=== PATIENT | female | born 1960 ===

== ENCOUNTER 2016-09-25 06:17 | Emergency (ER) | payer OTHER ==
[2016-09-25 06:33] VITALS: O2SAT 99
[2016-09-25] MEDS ORDERED: Sodium Chloride 0.9% 500 ML IV ONE (07:22)
--- NOTE | 2016-09-25 07:24 | C.PDOC ---
History Of Present Illness 56 yr old female presents to the ER for evaluation of intermittent nausea and chest pain. Patient denies fever, vomiting, abdominal pain, diarrhea or cough. Patient has history of alcohol abuse Time Seen by Provider: 09/25/16 07:13 Chief Complaint (Nursing): Chest Pain History Per: Patient History/Exam Limitations: no limitations, language barrier (Mosotho ) Onset/Duration Of Symptoms: Days Current Symptoms Are (Timing): Still Present Quality: Dull, Burning Exacerbating Factors: Movement Alleviating Factors: Rest Past Medical History Reviewed: Historical Data, Nursing Documentation, Vital Signs Vital Signs: Last Vital Signs Temp 98.3 F 09/25/16 11:01 Pulse 95 H 09/25/16 11:01 Resp 15 09/25/16 11:01 BP 103/68 09/25/16 11:01 Pulse Ox 99 09/25/16 11:14 - Medical History PMH: Gall Bladder Disease (cholecystectomy), HTN, Hypercholesterolemia Surgical History: CABG, Cholecystectomy, Coronary Stent, Pacemaker Family History: States: Hypertension - Social History Hx Tobacco Use: No Hx Alcohol Use: Yes Hx Substance Use: No - Immunization History Hx Tetanus Toxoid Vaccination: No Hx Influenza Vaccination: No Hx Pneumococcal Vaccination: No Review Of Systems Except As Marked, All Systems Reviewed And Found Negative. Constitutional: Negative for: Fever Cardiovascular: Positive for: Chest Pain Respiratory: Negative for: Cough Gastrointestinal: Positive for: Nausea. Negative for: Vomiting, Abdominal Pain , Diarrhea Physical Exam - Physical Exam Appears: Well, Non-toxic, No Acute Distress Skin: Normal Color, Warm, Dry Head: Atraumatic, Normacephalic Eye(s): bilateral: Normal Inspection, PERRL, EOMI Oral Mucosa: Moist Throat: Normal, No Erythema, No Exudate Neck: Normal Chest: Symmetrical, Tenderness (Reproducible left side chest pain. ), Other ((+ ) Scar noted on the left side of chest) Cardiovascular: Rhythm Regular, No Murmur Respiratory: Normal Breath Sounds, No Rales, No Rhonchi, No Wheezing Gastrointestinal/Abdominal: Normal Exam, Soft, No Tenderness, No Guarding, No Rebound Extremity: Normal ROM, No Swelling Neurological/Psych: Oriented x3, Normal Speech, Normal Motor Gait: Steady ED Course And Treatment - Laboratory Results Result Diagrams: 09/25/16 07:35 09/25/16 07:35 Lab Interpretation: Normal ECG: Interpreted By Me ECG Rhythm: Sinus Rhythm ECG Interpretation: No Acute Changes O2 Sat by Pulse Oximetry: 99 Pulse Ox Interpretation: Normal - Radiology CXR: Interpreted by Me CXR Interpretation: Yes: No Acute Disease - Other Rad CXR X-Ray: Viewed By Me, Read By Radiologist Interpretation: HISTORY: SOB. COMPARISON: Comparison is made to the previous study dated 08/01/2016. TECHNIQUE: Chest PA and lateral. FINDINGS: LUNGS: Interval appearance of mild pulmonary vascular congestion since the previous exam. PLEURA: No significant pleural effusion identified. No pneumothorax apparent. CARDIOVASCULAR: Mild cardiomegaly and post cardiac surgery changes are again seen. OSSEOUS STRUCTURES: No significant abnormalities. VISUALIZED UPPER ABDOMEN: Normal. OTHER FINDINGS: None. IMPRESSION: Mild pulmonary vascular congestion. Otherwise no interval change. Progress Note: Prior records were reviewed which shows patient has a history of alcohol abuse and is frequently seen for similar symptoms. On re-evaluation lungs clear, ambulating with steady gait. Requesting discharge Reassessment Condition: Improved Medical Decision Making Medical Decision Making: PLAN: * CXR * EKG * Troponin * CBC * Urinalysis * Zofran IVP * Sodium Chloride IV Disposition Counseled Patient/Family Regarding: Studies Performed, Diagnosis, Need For Followup, Rx Given - Disposition Referrals: [facility] [email or web address] [Outside] [facility] [Outside] Disposition: HOME/ ROUTINE Disposition Time: 11:30 Condition: IMPROVED Prescriptions: Ondansetron ODT [Zofran ODT] 1 odt PO BID PRN #6 odt PRN Reason: Nausea/Vomiting Instructions: Gastritis (ED) Print Language: GREENLANDIC - POA Present On Arrival: None - Clinical Impression Clinical Impression: Nausea, Chest wall pain - PA / PRECISION DEVICES INSPECTOR/TESTER / Resident Statement MD/DO has reviewed & agrees with the documentation as recorded. - Scribe Statement The provider has reviewed the documentation as recorded by the Scribe Shiloh Garza All medical record entries made by the Jianibe were at my direction and personally dictated by me. I have reviewed the chart and agree that the record accurately reflects my personal performance of the history, physical exam, medical decision making, and the department course for this patient. I have also personally directed, reviewed, and agree with the discharge instructions and disposition.
[2016-09-25 07:38] LABS: BASO % 0.2 % (0.0-2.0); EOS % 0.4 % (0.0-4.0); HEMATOCRIT 37.1 % (34.0-47.0); LYMPH # 1.9 K/uL (1.0-4.3); LYMPH % 45.7 % (20.0-40.0); MEAN CELL VOLUME 87.5 fL (81.0-99.0); MEAN CORPUSCULAR HEMOGLOBIN 28.8 pg (27.0-31.0); MEAN CORPUSCULAR HGB CONC 32.9 g/dL (33.0-37.0); MEAN PLATELET VOLUME 8.6 fL (7.2-11.7); MONO # 0.6 K/uL (0.0-0.8); MONO % 13.1 % (0.0-10.0); NRBC % 0.1 % (0.0-2.0); WHITE BLOOD COUNT 4.2 K/uL (4.8-10.8)
[2016-09-25 07:46] LABS: CHLORIDE 105 mmol/L (98-107)
[2016-09-25 07:47] LABS: POTASSIUM 4.5 mmol/L (3.6-5.2); SODIUM 141 mmol/L (132-148)
[2016-09-25 07:49] LABS: ALB/GLOB RATIO 1.1 (1.0-2.1); ALKALINE PHOSPHATASE 87 U/L (38-126); AST/SGOT 39 U/L (14-36); BILIRUBIN,TOTAL 0.7 mg/dL (0.2-1.3); BLOOD UREA NITROGEN 13 mg/dL (7-17); CARBON DIOXIDE 21 mmol/L (22-30); GFR AFRICAN-AMERICAN > 60; TOTAL PROTEIN 7.1 g/dL (6.3-8.3)
[2016-09-25 07:50] LABS: ALT/SGPT 9 U/L (9-52); GLUCOSE,RANDOM 89 mg/dL (65-105)
--- NOTE | 2016-09-25 07:53 | RAD ---
HISTORY: SOB COMPARISON: Comparison is made to the previous study dated 08/01/2016 TECHNIQUE: Chest PA and lateral FINDINGS: LUNGS: Interval appearance of mild pulmonary vascular congestion since the previous exam. PLEURA: No significant pleural effusion identified. No pneumothorax apparent. CARDIOVASCULAR: Mild cardiomegaly and post cardiac surgery changes are again seen. OSSEOUS STRUCTURES: No significant abnormalities. VISUALIZED UPPER ABDOMEN: Normal. OTHER FINDINGS: None. IMPRESSION: Mild pulmonary vascular congestion. Otherwise no interval change.
[2016-09-25] MEDS ORDERED: Sodium Chloride 0.9% 1,000 ML ONE (07:58)
[2016-09-25 08:13] LABS: RBC URINE 2 /hpf (0-3); TRANSITIONAL EPITHIAL < 1 /hpf (0-3); URINE BACTERIA RARE (<OCC); URINE BILIRUBIN NEGATIVE (NEGATIVE); URINE BLOOD NEGATIVE (NEGATIVE); URINE COLOR Yellow (YELLOW); URINE GLUCOSE (UA) NORMAL (Normal); URINE KETONE NEGATIVE (NEGATIVE); URINE PROTEIN NEGATIVE (NEGATIVE); URINE UROBILINOGEN NORMAL mg/dL (0.2-1.0); WBC URINE 7 /hpf (0-5)
[2016-09-25 08:15] LABS: URINE LEUKOCYTE ESTERASE 1+ Leu/uL (Negative)
[2016-09-25] MEDS ORDERED: Alum-Mag Hydrox-Simethicone Susp (30 mL) PO STA (09:32)
[2016-09-25] MEDS ORDERED: Aluminum Hydroxide/Magnesium Hydroxide Susp (30 mL) ONE (09:38)
[2016-09-25 11:01] VITALS: BP 103/68; PULSE 95; RESP 15; TEMP 98.3
--- NOTE | 2016-09-30 13:25 | CARD ---
APPROVED REPORT EKG Measurement Heart [id number] <Conclusion> Normal sinus rhythm Normal ECG
== END 2016-09-25 11:24 | disposition home or self-care (01) ==
LOC: C.ER 06:17
DX: R11.0 Nausea (principal); R07.89 Other chest pain
CPT/HCPCS: 71020; 80053; 81001; 82553; 83690; 84484; 85025; 96361; 96374; 96375; 99284; J2405; J7040

== ENCOUNTER 2016-10-16 20:29 | Emergency (ER) | payer SELFPAY ==
--- NOTE | 2016-10-16 21:05 | C.PDOC ---
History Of Present Illness Patient is a 56 year old female who presents to the ER with a complaint of chest pain and vomiting for the past 3 days. Patient admits to ETOH use today and presents intoxicated. Denies abdominal pain or diarrhea. Time Seen by Provider: 10/16/16 20:53 Chief Complaint (Nursing): Chest Pain History Per: Patient History/Exam Limitations: intoxication, language barrier Onset/Duration Of Symptoms: Days (3) Current Symptoms Are (Timing): Still Present Quality: Sharp Past Medical History Reviewed: Historical Data, Nursing Documentation, Vital Signs Vital Signs: Last Vital Signs Temp 97.6 F 10/16/16 22:32 Pulse 96 H 10/16/16 22:32 Resp 18 10/16/16 22:32 BP 122/86 10/16/16 22:32 Pulse Ox 95 10/16/16 22:32 - Medical History PMH: Gall Bladder Disease (cholecystectomy), HTN, Hypercholesterolemia Surgical History: CABG (5 years ago), Cholecystectomy, Coronary Stent, Pacemaker Family History: States: Unknown Family Hx, Hypertension - Social History Hx Tobacco Use: No Hx Alcohol Use: Yes Hx Substance Use: No - Immunization History Hx Tetanus Toxoid Vaccination: No Hx Influenza Vaccination: No Hx Pneumococcal Vaccination: No Review Of Systems Cardiovascular: Positive for: Chest Pain Gastrointestinal: Positive for: Vomiting. Negative for: Abdominal Pain, Diarrhea Physical Exam - Physical Exam Additional Physical Exam Comments: Constitutional: No acute distress. ETOH on breath. Head: Normocephalic. Atraumatic. Eyes: PERRL. ENT: Moist mucous membranes. Neck: Supple. Cardiovascular: Regular rate. Radial pulse 2+ bilaterally. Chest: Focal tenderness. Reproducible pain with palpation. Respiratory: Clear to auscultation bilaterally. GI: Soft. Nontender. Nondistended. Back: No CVA tenderness. Musculoskeletal: No tenderness or swelling of extremities. Skin: No rash. Neurologic: Alert, no focal deficit. ED Course And Treatment - Laboratory Results Result Diagrams: 10/16/16 21:16 10/16/16 21:16 O2 Sat by Pulse Oximetry: 98 (Room air) Pulse Ox Interpretation: Normal Medical Decision Making Medical Decision Making: Blood work, EKG, and CXR ordered. Aspirin administered. EKG results: 95 bpm, no ST/T changes. Patient states she feels better and wishes to go home. Enzymes negative in this patient with reproducible chest pain for the last 3 days. Disposition - Disposition Referrals: Kevin Kern MD [Staff Provider] - Disposition: HOME/ ROUTINE Disposition Time: 21:57 Condition: STABLE Prescriptions: Famotidine [Pepcid] 1 tab PO BID #28 tab Instructions: Chest Pain (ED) Print Language: MOSOTHO - POA Core Measure Indicators: Chest Pain - Clinical Impression Clinical Impression: Chest pain - Scribe Statement The provider has reviewed the documentation as recorded by the Scribnicolas Ring All medical record entries made by the Jianibnicolas were at my direction and personally dictated by me. I have reviewed the chart and agree that the record accurately reflects my personal performance of the history, physical exam, medical decision making, and the department course for this patient. I have also personally directed, reviewed, and agree with the discharge instructions and disposition.
[2016-10-16 21:19] LABS: BASO % 0.2 % (0.0-2.0); EOS % 0.4 % (0.0-4.0); HEMATOCRIT 38.5 % (34.0-47.0); LYMPH # 2.2 K/uL (1.0-4.3); LYMPH % 38.9 % (20.0-40.0); MEAN CELL VOLUME 88.2 fL (81.0-99.0); MEAN CORPUSCULAR HEMOGLOBIN 28.8 pg (27.0-31.0); MEAN CORPUSCULAR HGB CONC 32.7 g/dL (33.0-37.0); MEAN PLATELET VOLUME 8.4 fL (7.2-11.7); MONO # 0.6 K/uL (0.0-0.8); MONO % 10.1 % (0.0-10.0); NRBC % 0.1 % (0.0-2.0); RED CELL DISTRIBUTION WIDTH 14.4 % (11.5-14.5); WHITE BLOOD COUNT 5.6 K/uL (4.8-10.8)
[2016-10-16 21:41] LABS: CHLORIDE 105 mmol/L (98-107); POTASSIUM 4.3 mmol/L (3.6-5.2); SODIUM 144 mmol/L (132-148)
[2016-10-16 21:43] LABS: ALB/GLOB RATIO 1.3 (1.0-2.1); ALKALINE PHOSPHATASE 87 U/L (38-126); AST/SGOT 34 U/L (14-36); BILIRUBIN,TOTAL 0.3 mg/dL (0.2-1.3); BLOOD UREA NITROGEN 12 mg/dL (7-17); CARBON DIOXIDE 24 mmol/L (22-30); GFR AFRICAN-AMERICAN > 60; TOTAL PROTEIN 7.7 g/dL (6.3-8.3)
[2016-10-16 21:44] LABS: ALT/SGPT 17 U/L (9-52); CALCIUM 8.6 mg/dl (8.6-10.4); GLUCOSE,RANDOM 117 mg/dL (65-105)
[2016-10-16 21:45] LABS: ALCOHOL SERUM 175 mg/dl (0-10)
[2016-10-16] MEDS ORDERED: Aluminum Hydroxide/Magnesium Hydroxide Susp (30 mL) ONE (21:55)
[2016-10-16] MEDS ORDERED: Aluminum Hydroxide/Magnesium Hydroxide Susp (30 mL) PO ONE (21:57)
[2016-10-16 22:32] VITALS: BP 122/86; PULSE 96; RESP 18; TEMP 97.6
[2016-10-16 23:37] VITALS: O2SAT 98
--- NOTE | 2016-10-17 09:58 | RAD ---
HISTORY: cp COMPARISON: 09/25/2016 FINDINGS: LUNGS: Poor inspiration with low lung volumes, crowded bronchovascular markings and mild bibasilar atelectasis. The central pulmonary vasculature also slightly congested in appearance possibly due to same however underlying mild chronic compensated pulmonary edema/CHF not excluded PLEURA: No significant pleural effusion identified, no pneumothorax apparent. CARDIOVASCULAR: Cardiomegaly and valve replacement. OSSEOUS STRUCTURES: No significant abnormalities. VISUALIZED UPPER ABDOMEN: Normal. OTHER FINDINGS: None. IMPRESSION: Poor inspiration with low lung volumes, crowded bronchovascular markings and mild bibasilar atelectasis. The central pulmonary vasculature also slightly congested in appearance possibly due to same however underlying mild chronic compensated pulmonary edema/CHF not excluded
== END 2016-10-16 22:31 | disposition home or self-care (01) ==
LOC: C.ER 20:29
DX: R07.89 Other chest pain (principal)
CPT/HCPCS: 71010; 80053; 82550; 82553; 84484; 85025; 99285; G0480

== ENCOUNTER 2016-11-30 05:51 | Emergency (ER) | payer SELFPAY ==
[2016-11-30 06:04] VITALS: BP 144/89; PULSE 74; RESP 20; TEMP 97.4; O2SAT 100
[2016-11-30] MEDS ORDERED: Promethazine/Cod 6.25mg-10mg/5ml Syr UD PO STA (06:07)
--- NOTE | 2016-11-30 06:12 | C.PDOC ---
History Of Present Illness 56 year old female who presents to the ER with a complaint of persistent cough since last night, associated with a sore throat and headache. Patient denies SOB or chest pain. Time Seen by Provider: 11/30/16 06:04 Chief Complaint (Nursing): Cough, Cold, Congestion History Per: Patient History/Exam Limitations: no limitations Onset/Duration Of Symptoms: Days (Since yesterday) Current Symptoms Are (Timing): Still Present Location Of Pain: Throat, Headache Sick Contacts (Context): None Associated Symptoms: Cough Ear Symptoms: Bilateral: None Recent travel outside of the [place]: No Past Medical History Reviewed: Historical Data, Nursing Documentation, Vital Signs Vital Signs: Last Vital Signs Temp 97.4 F L 11/30/16 06:00 Pulse 74 11/30/16 06:00 Resp 20 11/30/16 06:00 BP 144/89 11/30/16 06:00 Pulse Ox 100 11/30/16 06:13 - Medical History PMH: Gall Bladder Disease (cholecystectomy), HTN, Hypercholesterolemia Surgical History: CABG (5 years ago), Cholecystectomy, Coronary Stent, Pacemaker Family History: States: Unknown Family Hx, Hypertension - Social History Hx Tobacco Use: No Hx Alcohol Use: No Hx Substance Use: No - Immunization History Hx Tetanus Toxoid Vaccination: No Hx Influenza Vaccination: No Hx Pneumococcal Vaccination: No Review Of Systems ENT: Positive for: Throat Pain Cardiovascular: Negative for: Chest Pain Respiratory: Positive for: Cough. Negative for: Shortness of Breath Neurological: Positive for: Headache Physical Exam - Physical Exam Appears: Well, Non-toxic Skin: Normal Color, Warm, Dry Head: Atraumatic, Normacephalic Oral Mucosa: Moist Throat: Normal, No Erythema, No Exudate Chest: Symmetrical, No Tenderness Cardiovascular: Rhythm Regular, No Murmur Respiratory: Normal Breath Sounds, No Rales, No Rhonchi, No Wheezing Gastrointestinal/Abdominal: Soft, No Tenderness Neurological/Psych: Oriented x3, Normal Speech, Normal Cognition ED Course And Treatment O2 Sat by Pulse Oximetry: 100 (Room air) Pulse Ox Interpretation: Normal - Radiology CXR Interpretation: Yes: No Acute Disease, Other (minimal congestion). No: Infiltrates Progress Note: CXR ordered. Phenergan PO administered. CXR reviewed, pt placed on Zpack, prednisone and cough syrup. Pt is stable, in no resp distress Disposition Counseled Patient/Family Regarding: Diagnosis, Need For Followup, Rx Given - Disposition Referrals: Gautam Leblanc MD [Staff Provider] - Disposition: HOME/ ROUTINE Disposition Time: 06:38 Condition: STABLE Additional Instructions: Increase PO fluids Take meds as directed Follow up with PMD Return to ER if worse Prescriptions: Azithromycin [Zithromax] 250 mg PO DAILY #6 tab predniSONE [Prednisone] 40 mg PO DAILY #10 tab Promethazine DM [Phenergan DM Syrup] 5 ml PO TID #100 ml Instructions: Acute Bronchitis (ED) - Clinical Impression Clinical Impression: Bronchitis - Scribe Statement The provider has reviewed the documentation as recorded by the Scribnicolas Ring All medical record entries made by the Jianibnicolas were at my direction and personally dictated by me. I have reviewed the chart and agree that the record accurately reflects my personal performance of the history, physical exam, medical decision making, and the department course for this patient. I have also personally directed, reviewed, and agree with the discharge instructions and disposition.
[2016-11-30] MEDS ORDERED: Promethazine/Cod 6.25mg-10mg/5ml Syr UD ONE (06:26)
--- NOTE | 2016-11-30 08:42 | RAD ---
HISTORY: cough COMPARISON: 10/16/2016 TECHNIQUE: Chest PA and lateral FINDINGS: LUNGS: Diffuse increased interstitial lung markings which may represent mild edema and or subtle infiltrate. Clinical correlation. PLEURA: No significant pleural effusion identified. No pneumothorax apparent. CARDIOVASCULAR: Status post median sternotomy. Prior valve replacement. Surgical clips project over the heart. OSSEOUS STRUCTURES: No significant abnormalities. VISUALIZED UPPER ABDOMEN: Surgical clips in the upper abdomen. OTHER FINDINGS: None. IMPRESSION: Diffuse increased interstitial lung markings which may represent mild edema and or subtle infiltrate. Clinical correlation.
== END 2016-11-30 06:55 | disposition home or self-care (01) ==
LOC: C.ER 05:51
DX: J40 Bronchitis, not specified as acute or chronic (principal)

== ENCOUNTER 2017-02-07 07:04 | Emergency (ER) | payer OTHER ==
[2017-02-07 07:10] VITALS: O2SAT 98
[2017-02-07 08:15] LABS: BASO % 0.3 % (0.0-2.0); EOS % 0.2 % (0.0-4.0); HEMATOCRIT 34.3 % (34.0-47.0); LYMPH % 21.3 % (20.0-40.0); MEAN CELL VOLUME 86.9 fL (81.0-99.0); MEAN CORPUSCULAR HEMOGLOBIN 28.6 pg (27.0-31.0); MEAN CORPUSCULAR HGB CONC 32.9 g/dL (33.0-37.0); MEAN PLATELET VOLUME 8.7 fL (7.2-11.7); MONO # 0.5 K/uL (0.0-0.8); RED CELL DISTRIBUTION WIDTH 14.9 % (11.5-14.5); WHITE BLOOD COUNT 4.6 K/uL (4.8-10.8)
[2017-02-07 08:22] LABS: INR 3.3
[2017-02-07 08:26] LABS: CHLORIDE 106 mmol/L (98-107); SODIUM 138 mmol/L (132-148)
[2017-02-07 08:28] LABS: BILIRUBIN,TOTAL 1.5 mg/dL (0.2-1.3); CARBON DIOXIDE 21 mmol/L (22-30); GFR AFRICAN-AMERICAN > 60
[2017-02-07 08:29] LABS: ALB/GLOB RATIO 1.1 (1.0-2.1); ALKALINE PHOSPHATASE 82 U/L (38-126); ALT/SGPT 14 U/L (9-52); AST/SGOT 54 U/L (14-36); BLOOD UREA NITROGEN 11 mg/dL (7-17); CALCIUM 8.8 mg/dl (8.6-10.4); GLUCOSE,RANDOM 86 mg/dL (65-105); TOTAL PROTEIN 7.2 g/dL (6.3-8.3)
[2017-02-07 08:56] LABS: POTASSIUM 4.8 mmol/L (3.6-5.2)
--- NOTE | 2017-02-07 09:02 | C.PDOC ---
History Of Present Illness 56 y/o female presents to ED with complaints of waking up with left eye redness for 2 days. Patient states she is taking blood pressure medicine and is on Coumadin for which she tests every 2 weeks but reports missing last appointment. Patient reports discomfort in eye and denies acuity changes, pain or any other complaints at this time. Chief Complaint (Nursing): Eye Problem History Per: Patient History/Exam Limitations: no limitations Onset/Duration Of Symptoms: Days Current Symptoms Are (Timing): Still Present Past Medical History Reviewed: Historical Data, Nursing Documentation, Vital Signs Vital Signs: Last Vital Signs Temp 98.5 F 02/07/17 09:27 Pulse 69 02/07/17 09:27 Resp 16 02/07/17 09:27 BP 128/78 02/07/17 09:27 Pulse Ox 98 02/07/17 12:50 - Medical History PMH: Gall Bladder Disease (cholecystectomy), HTN, Hypercholesterolemia Surgical History: CABG (5 years ago), Cholecystectomy, Coronary Stent, Pacemaker Family History: States: Unknown Family Hx, Hypertension - Social History Hx Tobacco Use: No Hx Alcohol Use: No Hx Substance Use: No - Immunization History Hx Tetanus Toxoid Vaccination: No Hx Influenza Vaccination: No Hx Pneumococcal Vaccination: No Review Of Systems Except As Marked, All Systems Reviewed And Found Negative. Constitutional: Negative for: Fever, Chills Eyes: Negative for: Vision Change Gastrointestinal: Negative for: Nausea, Vomiting, Diarrhea Genitourinary: Negative for: Dysuria Skin: Negative for: Rash Physical Exam - Physical Exam Appears: Non-toxic, No Acute Distress Skin: Normal Color, Warm, Dry, No Rash Head: Atraumatic, Normacephalic Eye(s): bilateral: PERRL, EOMI, right: Normal Inspection, left: Other ( Subconjunctival hemmorhage ) Oral Mucosa: Moist Neck: Supple Chest: Symmetrical Cardiovascular: Rhythm Regular Respiratory: Normal Breath Sounds, No Rales, No Rhonchi, No Wheezing Gastrointestinal/Abdominal: Soft, No Tenderness, No Guarding, No Rebound Extremity: Capillary Refill (<2 seconds), No Deformity, Other (ecchymosis to left upper arm 2 cm) Neurological/Psych: Oriented x3, Normal Speech, Normal Motor, Normal Sensation ED Course And Treatment - Laboratory Results Result Diagrams: 02/07/17 08:09 08/14/17 08:09 O2 Sat by Pulse Oximetry: 98 (RA) Pulse Ox Interpretation: Normal Medical Decision Making Medical Decision Making: Visual acuity tried to be done on patient but she is illiterate and can not read Blood work showed INR slightly elevated, 3.3 Artificial tears Advised to follow up with PMD in 1-2 days, Given copy of blood work. Instructed to use Artificial tears. Disposition - Disposition Referrals: Kevin Kern MD [Staff Provider] - Disposition: HOME/ ROUTINE Disposition Time: 08:59 Condition: STABLE Additional Instructions: Follow up with PMD within 1-2 days. Return to Ed if feel worse. Do not take Coumadin (Warfarin) tonight. Instructions: Subconjunctival Hemorrhage (ED) Forms: [employer] ([employer]) Print Language: AUSTRALIAN - Clinical Impression Clinical Impression: Subconjunctival hemorrhage - Scribe Statement The provider has reviewed the documentation as recorded by the Scribnicolas Paniagua All medical record entries made by the Scribe were at my direction and personally dictated by me. I have reviewed the chart and agree that the record accurately reflects my personal performance of the history, physical exam, medical decision making, and the department course for this patient. I have also personally directed, reviewed, and agree with the discharge instructions and disposition.
[2017-02-07 09:27] VITALS: BP 128/78; PULSE 69; RESP 16; TEMP 98.5
== END 2017-02-07 09:28 | disposition home or self-care (01) ==
LOC: C.ER 07:04
DX: H11.32 Conjunctival hemorrhage, left eye (principal)

== ENCOUNTER 2017-09-18 03:10 | Emergency (ER) | payer SELFPAY ==
--- NOTE | 2017-09-18 04:19 | C.PDOC ---
History Of Present Illness 57 y/o female with a PMHx of hypertension, hypercholesterolemia, CAD, s/p CABG 5 years ago with 2 vessel occlusion, presents to the Emergency Department with light chest pain onset tonight. Patient describes palpitations as a weird fluttering sensation. Also complaining of shortness of breath and dyspnea on exertion. Patient denies any fevers, chills, diaphoresis, nausea, vomiting, or dizziness. Time Seen by Provider: 09/18/17 03:55 Chief Complaint (Nursing): Chest Pain History Per: Patient History/Exam Limitations: no limitations Onset/Duration Of Symptoms: Days (x1) Current Symptoms Are (Timing): Still Present Past Medical History Reviewed: Historical Data, Nursing Documentation, Vital Signs Vital Signs: Last Vital Signs Temp 97.6 F 09/18/17 03:25 Pulse 96 H 09/18/17 07:14 Resp 18 09/18/17 07:08 BP 103/67 09/18/17 07:08 Pulse Ox 97 09/18/17 07:26 - Medical History PMH: Atrial Fibrillation, CAD, CVA, Diabetes, Gall Bladder Disease ( cholecystectomy), HTN, Hypercholesterolemia Denies: Chronic Kidney Disease Surgical History: CABG (5 years ago), Cholecystectomy, Coronary Stent, Pacemaker Other Surgeries: 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 Dyspnea. Negative for: Edema Respiratory: Positive for: Shortness of Breath, SOB with Excertion. Negative for: Pleuritic Pain, Wheezing Gastrointestinal: Negative for: Nausea, Vomiting, Constipation Genitourinary: Negative for: Dysuria, Frequency, Incontinence, Hematuria Musculoskeletal: Negative for: Neck Pain, Shoulder Pain, Back Pain Skin: Negative for: Rash Neurological: Negative for: Weakness, Headache, Dizziness Physical Exam - Physical Exam Appears: Non-toxic, No Acute Distress Skin: Normal Color, Warm, Dry Head: Atraumatic, Normacephalic Eye(s): bilateral: Normal Inspection, PERRL, EOMI Nose: Normal Oral Mucosa: Moist Neck: Normal ROM, Supple Chest: Symmetrical, Other (Midline vertical scar on chest wall) Cardiovascular: Rhythm Irregular, Murmur (Loud systolic murmur) Respiratory: Normal Breath Sounds, No Accessory Muscle Use, No Wheezing Gastrointestinal/Abdominal: Soft, No Tenderness, No Distention Extremity: No Calf Tenderness, No Swelling Extremity: Bilateral: Atraumatic, Normal Color And Temperature, Normal ROM Neurological/Psych: Oriented x3, Normal Speech ED Course And Treatment - Laboratory Results Result Diagrams: 09/18/17 04:32 09/18/17 04:32 ECG: Interpreted By Me, Viewed By Me Interpretation Of ECG: A flutter with variable AV block. Vent rate: 138 bpm. KS interval: * ms. QRS duration: 82 ms. QT/QTc: 310/469 ms. P-R-T axes: * 24 112 O2 Sat by Pulse Oximetry: 97 (RA) Pulse Ox Interpretation: Normal - Radiology CXR: Interpreted by Me, Viewed By Me CXR Interpretation: Yes: Cardiomegaly Critical Care Time - Critical Care Note Total Time (in mins): 45 Documented critical care: time excludes all time spent performing seperately billable procedures. Medical Decision Making Medical Decision Making: Chart review: Patient last seen 04/2017 for vaginal complaints. Last visit for chest pain was September 2016, at which time she was discharged home after negative work-up including cardiac enzymes and CXR. Time: 4:03 Initial Plan: * EKG * Pro-BNP * Troponin I * Urine drug screen * CMP * CBC * D dimer * PTT * Prothrombin time * Chest x-ray * Urinalysis * HCG, qualitative urine [place] [facility] 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 Echocardiogram from October 2016 showed ejection fraction of 50%. Will order IV fluids and 5 mg Metoprolol 6:[address] Licea, hospitalist on-call, will admit patient to tele to improve rate control. Ordered second dose of Metropolol and Digoxin. Disposition Discussed With : Gautam Licea Doctor Will See Patient In The: Hospital Counseled Patient/Family Regarding: Studies Performed, Diagnosis - Disposition Disposition: HOSPITALIZED Disposition Time: 06:36 Condition: FAIR - Clinical Impression Clinical Impression: Chest pain, Atrial flutter - Scribe Statement The provider has reviewed the documentation as recorded by the Sherry Gonzalez Provider Attestation: All medical record entries made by the Sherry were at my direction and personally dictated by me. I have reviewed the chart and agree that the record accurately reflects my personal performance of the history, physical exam, medical decision making, and the department course for this patient. I have also personally directed, reviewed, and agree with the discharge instructions and disposition.
[2017-09-18] MEDS ORDERED: Metoprolol 1 mg/ml Inj IVP ONE ×3 (04:25→06:36)
[2017-09-18] MEDS ORDERED: Sodium Chloride 0.9% 1,000 ML IV ONE (04:27)
[2017-09-18 04:38] LABS: BASO % 0.6 % (0.0-2.0); EOS # 0.2 K/uL (0.0-0.7); EOS % 2.9 % (0.0-4.0); LYMPH # 2.3 K/uL (1.0-4.3); LYMPH % 44.2 % (20.0-40.0); MEAN CELL VOLUME 83.6 fL (81.0-99.0); MEAN CORPUSCULAR HEMOGLOBIN 26.9 pg (27.0-31.0); MEAN CORPUSCULAR HGB CONC 32.2 g/dL (33.0-37.0); MEAN PLATELET VOLUME 8.7 fL (7.2-11.7); MONO # 0.6 K/uL (0.0-0.8); MONO % 11.3 % (0.0-10.0); NEUT # 2.2 K/uL (1.8-7.0); RBC 4.08 Mil/uL (3.80-5.20); RED CELL DISTRIBUTION WIDTH 15.8 % (11.5-14.5); WHITE BLOOD COUNT 5.3 K/uL (4.8-10.8)
[2017-09-18 04:54] LABS: ALB/GLOB RATIO 1.1 (1.0-2.1); ALBUMIN 4.1 g/dL (3.5-5.0); CALCIUM 8.3 mg/dl (8.6-10.4); GFR AFRICAN-AMERICAN > 60; GFR NON-AFRICAN AMERICAN 57
[2017-09-18 05:04] LABS: B-TYPE NATRIURETIC PEPTIDE 1030 pg/mL (0-900)
[2017-09-18 05:26] LABS: ALT/SGPT 30 U/L (9-52); AST/SGOT 55 U/L (14-36); BLOOD UREA NITROGEN 17 mg/dL (7-17)
[2017-09-18 05:34] LABS: INR 2.8; PARTIAL THROMBOPLASTIN TIME 46 SECONDS (21-34)
[2017-09-18 05:34] LABS: SQUAMOUS EPITHIAL 1 /hpf (0-5); URINE BACTERIA RARE (<OCC); URINE BILIRUBIN NEGATIVE (NEGATIVE); URINE CLARITY Clear (Clear); URINE COLOR Straw (YELLOW); URINE GLUCOSE (UA) NORMAL (Normal); URINE LEUKOCYTE ESTERASE 1+ Leu/uL (Negative); URINE PROTEIN NEGATIVE (NEGATIVE); URINE UROBILINOGEN NORMAL mg/dL (0.2-1.0)
[2017-09-18 05:35] LABS: URINE BLOOD NEGATIVE (NEGATIVE)
[2017-09-18 05:36] LABS: HCG,QUALITATIVE URINE NEGATIVE (NEGATIVE)
[2017-09-18 05:38] LABS: D DIMER < 200 ng/mlDDU (0-243)
[2017-09-18 05:39] LABS: PROTHROMBIN TIME 32.7 SECONDS (9.7-12.2)
[2017-09-18 05:54] LABS: BARBITURATES, UR NEGATIVE (NEGATIVE); BENZODIAZEPINES, UR NEGATIVE (NEGATIVE); OPIATES, UR NEGATIVE (NEGATIVE); PHENCYCLIDINE, UR NEGATIVE (NEGATIVE)
[2017-09-18] MEDS ORDERED: Digoxin 500 mcg/2ml (0.5 mg/2ml) Inj IVP ONE (06:37)
[2017-09-18 07:10] VITALS: PULSE 98
--- NOTE | 2017-09-18 07:32 | CP.PCM.HP ---
<Iban Leroy - Last Filed: 09/18/17 07:48> History of Present Illness - History of Present Illness History of Present Illness: CC: Chest pain HPI: chest pain , BIBA for SOB and alcohol intoxication Patient is 57 year old female, with PMHx of HTN, hypercholesterolemia, CAD, s/p CABG (5 years ago with 2 vessel occlusion), presents to the Emergency Department with chest pain. Patient describes pain as , and rates /10 on the severity scale. PMHx: HTN, CAD, Hypercholesterolemia PSx: CABG and stenting performed 5 years ago (2 vessel disease), Cholecystectomy. Hospitalizations: Multiple hospitalizations for a myriad of issues, refer to patient file for complete list. Meds: Tramadol 50mg PO Q8hr Metoprolol 60mg PO BID Simvastatin 20mg PO QD Irbesartan (Avapro) 150mg PO QD Aspirin 81mg PO QD Allergies: NKDA SocialHx: T: Denies any nicotine use D: Denies illicit drug use A: Patient unable to estimate # of drinks consumed daily, but reports to binging on alcohol twice a week. FamHx: Aunt of breast Cancer. Father ~80 from complications to DM. Brother has DM 3 children, 2 boys and 1 girl. All living. Son Ru , 's phone is disconnected per patient City Carrier Assistant: Dr. Kern, does not follow up regularly Past Patient History - Infectious Disease Hx of Infectious Diseases: None - Past Medical History & Family History Past Medical History?: Yes - Past Social History Smoking Status: Never Smoked - CARDIAC Hx Atrial Fibrillation: Yes Hx Hypercholesterolemia: Yes Hx Hypertension: Yes Hx Pacemaker: Yes - PULMONARY Hx Respiratory Disorders: No - NEUROLOGICAL Hx Neurological Disorder: No - HEENT Hx HEENT Problems: No - RENAL Hx Chronic Kidney Disease: No - ENDOCRINE/METABOLIC Hx Endocrine Disorders: No - HEMATOLOGICAL/ONCOLOGICAL Hx Blood Disorders: No - INTEGUMENTARY Hx Dermatological Problems: No - MUSCULOSKELETAL/RHEUMATOLOGICAL Hx Falls: No - GASTROINTESTINAL Hx Gall Bladder Disease: Yes (cholecystectomy) - GENITOURINARY/GYNECOLOGICAL Hx Genitourinary Disorders: No - PSYCHIATRIC Hx Substance Use: No - SURGICAL HISTORY Hx Cholecystectomy: Yes Hx Coronary Artery Bypass Graft: Yes (5 years ago) Hx Coronary Stent: Yes - ANESTHESIA Hx Anesthesia: Yes Hx Anesthesia Reactions: No Hx Malignant Hyperthermia: No Meds Allergies/Adverse Reactions: Allergies Allergy/AdvReac Type Severity Reaction Status Date / Time No Known Allergies Allergy Verified 05/06/17 05:10 Results - Vital Signs Recent Vital Signs: Last Vital Signs Temp 97.6 F 09/18/17 03:25 Pulse 96 H 09/18/17 07:14 Resp 18 09/18/17 07:08 BP 103/67 09/18/17 07:08 Pulse Ox 97 09/18/17 07:27 - Labs Result Diagrams: 09/18/17 04:32 09/18/17 04:32 Labs: Laboratory Results - last 24 hr 09/18/17 09/18/17 09/18/17 04:32 04:32 05:15 WBC 5.3 RBC 4.08 Hgb 11.0 Hct 34.1 MCV 83.6 D MCH 26.9 L MCHC 32.2 L RDW 15.8 H Plt Count 390 D MPV 8.7 Neut % (Auto) 41.0 L Lymph % (Auto) 44.2 H Payette % (Auto) 11.3 H Eos % (Auto) 2.9 Baso % (Auto) 0.6 Neut # (Auto) 2.2 Lymph # (Auto) 2.3 Payette # (Auto) 0.6 Eos # (Auto) 0.2 Baso # (Auto) 0.0 PT 32.7 H* INR 2.8 APTT 46 H D-Dimer, Quantitative < 200 Sodium 146 Potassium 4.2 Chloride 109 H Carbon Dioxide 20 L Anion Gap 22 H BUN 17 Creatinine 1.0 Est GFR ( Amer) > 60 Est GFR (Non-Af Amer) 57 Random Glucose 87 Calcium 8.3 L Total Bilirubin 0.7 AST 55 H ALT 30 Alkaline Phosphatase 78 Troponin I 0.0260 NT-Pro-B Natriuret Pep 1030 H Total Protein 7.9 Albumin 4.1 Globulin 3.8 Albumin/Globulin Ratio 1.1 Urine Color Urine Clarity Urine pH Ur Specific [place] Urine Protein Urine Glucose (UA) Urine Ketones Urine Blood Urine Nitrate Urine Bilirubin Urine Urobilinogen Ur Leukocyte Esterase Urine WBC (Auto) Urine RBC (Auto) Ur Squamous Epith Cells Urine Bacteria Hyaline Casts Urine HCG, Qual Urine Opiates Screen Urine Methadone Screen Ur Barbiturates Screen Ur Phencyclidine Scrn Ur Amphetamines Screen U Benzodiazepines Scrn U Oth Cocaine Metabols U Cannabinoids Screen 09/18/17 09/18/17 05:17 05:17 WBC RBC Hgb Hct MCV MCH MCHC RDW Plt Count MPV Neut % (Auto) Lymph % (Auto) [place] % (Auto) Eos % (Auto) Baso % (Auto) Neut # (Auto) Lymph # (Auto) [place] # (Auto) Eos # (Auto) Baso # (Auto) PT INR APTT D-Dimer, Quantitative Sodium Potassium Chloride Carbon Dioxide Anion Gap BUN Creatinine Est GFR ( Amer) Est GFR (Non-Af Amer) Random Glucose Calcium Total Bilirubin AST ALT Alkaline Phosphatase Troponin I NT-Pro-B Natriuret Pep Total Protein Albumin Globulin Albumin/Globulin Ratio Urine Color Straw Urine Clarity Clear Urine pH 5.0 Ur Specific [place] 1.008 Urine Protein Negative Urine Glucose (UA) Normal Urine Ketones Negative Urine Blood Negative Urine Nitrate Negative Urine Bilirubin Negative Urine Urobilinogen Normal Ur Leukocyte Esterase 1+ H Urine WBC (Auto) 4 Urine RBC (Auto) < 1 Ur Squamous Epith Cells 1 Urine Bacteria Rare Hyaline Casts 6-10 H Urine HCG, Qual Negative Urine Opiates Screen Negative Urine Methadone Screen Negative Ur Barbiturates Screen Negative Ur Phencyclidine Scrn Negative Ur Amphetamines Screen Negative U Benzodiazepines Scrn Negative U Oth Cocaine Metabols Positive H U Cannabinoids Screen Negative Assessment & Plan - Assessment and Plan (Free Text) Plan: Chest pain rule out TN Admit to tele EKG (09/18/17): Rate: ventricular rate of 138 bpm, Aflutter ROMIs: negative x 1; f/u Echo f/u repeat Chest Xray in AM Morphine 1mg IVP prn severe pain ASA 81mg PO daily O2 via NC @ 2L Pain reproducible upon palpation f/u TSH, HbA1c Atrial fibrillation/flutter EKG (09/18/17): Rate: ventricular rate of 138 bpm, Aflutter Digoxin 0.5 mg IV once in ED, Lopressor 5mg IV x2 in ED Alcohol Abuse CIWA protocol - monitor for sign of withdrawl MV, thiamine, folic acid f/u MG level amylase lipase = Alcohol serum = 55 LFTs within normal limits f/u UDS Abnormal UA UA (09/18/17): 1+ LE, hx of CVA Stimulant abuse disorder UDS: Positive for cocaine metabolites Hx of 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 endocarditis HTN Losartan 50mg PO daily Metoprolol 50mg PO BID Hypercholesterolemia Crestor 5 mg QHS f/u Lipid profile Prophylaxis Heparin 5,000 U SC Q8 Pepcid 20mg PO BID Zofran PRN Nausea NaCl at 75cc/hour Diet - Hearly healthy low sodium SCDs <Mo Levy - Last Filed: 09/18/17 17:38> Present on Admission - Present on Admission Any Indicators Present on Admission: Yes Results - Vital Signs Recent Vital Signs: Last Vital Signs Temp 98.2 F 09/18/17 08:21 Pulse 94 H 09/18/17 08:21 Resp 20 09/18/17 08:21 BP 115/62 09/18/17 08:21 Pulse Ox 98 09/18/17 08:21 - Labs Result Diagrams: 09/18/17 04:32 09/18/17 04:32 Labs: Laboratory Results - last 24 hr 09/18/17 09/18/17 09/18/17 04:32 04:32 05:15 WBC 5.3 RBC 4.08 Hgb 11.0 Hct 34.1 MCV 83.6 D MCH 26.9 L MCHC 32.2 L RDW 15.8 H Plt Count 390 D MPV 8.7 Neut % (Auto) 41.0 L Lymph % (Auto) 44.2 H [place] % (Auto) 11.3 H Eos % (Auto) 2.9 Baso % (Auto) 0.6 Neut # (Auto) 2.2 Lymph # (Auto) 2.3 [place] # (Auto) 0.6 Eos # (Auto) 0.2 Baso # (Auto) 0.0 PT 32.7 H* INR 2.8 APTT 46 H D-Dimer, Quantitative < 200 Sodium 146 Potassium 4.2 Chloride 109 H Carbon Dioxide 20 L Anion Gap 22 H BUN 17 Creatinine 1.0 Est GFR ( Amer) > 60 Est GFR (Non-Af Amer) 57 Random Glucose 87 Calcium 8.3 L Total Bilirubin 0.7 AST 55 H ALT 30 Alkaline Phosphatase 78 Troponin I 0.0260 NT-Pro-B Natriuret Pep 1030 H Total Protein 7.9 Albumin 4.1 Globulin 3.8 Albumin/Globulin Ratio 1.1 Urine Color Urine Clarity Urine pH Ur Specific [place] Urine Protein Urine Glucose (UA) Urine Ketones Urine Blood Urine Nitrate Urine Bilirubin Urine Urobilinogen Ur Leukocyte Esterase Urine WBC (Auto) Urine RBC (Auto) Ur Squamous Epith Cells Urine Bacteria Hyaline Casts Urine HCG, Qual Urine Opiates Screen Urine Methadone Screen Ur Barbiturates Screen Ur Phencyclidine Scrn Ur Amphetamines Screen U Benzodiazepines Scrn U Oth Cocaine Metabols U Cannabinoids Screen 09/18/17 09/18/17 05:17 05:17 WBC RBC Hgb Hct MCV MCH MCHC RDW Plt Count MPV Neut % (Auto) Lymph % (Auto) [place] % (Auto) Eos % (Auto) Baso % (Auto) Neut # (Auto) Lymph # (Auto) [place] # (Auto) Eos # (Auto) Baso # (Auto) PT INR APTT D-Dimer, Quantitative Sodium Potassium Chloride Carbon Dioxide Anion Gap BUN Creatinine Est GFR ( Amer) Est GFR (Non-Af Amer) Random Glucose Calcium Total Bilirubin AST ALT Alkaline Phosphatase Troponin I NT-Pro-B Natriuret Pep Total Protein Albumin Globulin Albumin/Globulin Ratio Urine Color Straw Urine Clarity Clear Urine pH 5.0 Ur Specific [place] 1.008 Urine Protein Negative Urine Glucose (UA) Normal Urine Ketones Negative Urine Blood Negative Urine Nitrate Negative Urine Bilirubin Negative Urine Urobilinogen Normal Ur Leukocyte Esterase 1+ H Urine WBC (Auto) 4 Urine RBC (Auto) < 1 Ur Squamous Epith Cells 1 Urine Bacteria Rare Hyaline Casts 6-10 H Urine HCG, Qual Negative Urine Opiates Screen Negative Urine Methadone Screen Negative Ur Barbiturates Screen Negative Ur Phencyclidine Scrn Negative Ur Amphetamines Screen Negative U Benzodiazepines Scrn Negative U Oth Cocaine Metabols Positive H U Cannabinoids Screen Negative Attending/Attestation - Attestation I have personally seen and examined this patient.: No I have fully participated in the care of the patient.: No I have reviewed all pertinent clinical information: Yes Notes (Text): 09/18/17 15:21 As I was reviewing patient information, resident Dr. Leroy informed me that the patient singed out AMA. Therefore this patient was not seen. Mo Levy D.O.
[2017-09-18 08:22] VITALS: BP 115/62; PULSE 94; RESP 20; TEMP 98.2; O2SAT 98
--- NOTE | 2017-09-18 08:29 | RAD ---
PROCEDURE: CHEST RADIOGRAPH, 1 VIEW HISTORY: chest pain COMPARISON: 11/30/2016. FINDINGS: LUNGS: The lungs are well inflated. There is mild pulmonary venous congestion. PLEURA: No pneumothorax or pleural fluid seen. CARDIOVASCULAR: There is persistent mild cardiomegaly. Status post CABG. There is a prosthetic aortic valve. OSSEOUS STRUCTURES: No significant abnormalities. VISUALIZED UPPER ABDOMEN: Normal. OTHER FINDINGS: None. IMPRESSION: Persistent mild cardiomegaly. Mild pulmonary venous congestion. No active pulmonary disease.
--- NOTE | 2017-09-19 23:22 | CARD ---
APPROVED REPORT EKG Measurement Heart [id number] <Conclusion> Atrial fibrilation, rapid ventricular responss Septal infarct, age undetermined Abnormal ECG
== END 2017-09-18 07:55 | disposition left against medical advice (07) ==
LOC: C.ER 03:10 → UNDOADMIN 06:37 → C.9E 06:37 → C.6T 06:52 → UNDODISIN 07:55 → C.ER 07:55
DX: R07.9 Chest pain, unspecified (principal); I48.92 Unspecified atrial flutter; I10 Essential (primary) hypertension; E78.00 Pure hypercholesterolemia, unspecified; I25.10 Atherosclerotic heart disease of native coronary artery without angina pectoris
CPT/HCPCS: 71045; 80053; 81001; 83880; 84484; 84703; 85025; 85378; 85610; 85730; 93005; 96361; 96374; 96375; 99285; G0480; J2765; J7040

== ENCOUNTER 2018-06-25 08:02 | Emergency (ER) | payer BC ==
[2018-06-25 08:03] VITALS: PULSE 98
[2018-06-25 08:16] VITALS: RESP 18
--- NOTE | 2018-06-25 08:33 | C.PDOC ---
History Of Present Illness 58 year old female presents to the ED for evaluation of left sided chest pain, palpitations, epigastric pain, headache, and feelings of anxiety after drinking hard liquor last night. The patient reports sticking her finger down her throat with one episode of vomiting, no relief in symptoms. She is unclear of how much ETOH was consumed. Denies fever, chills, and any other associated symptoms. Time Seen by Provider: 06/25/18 08:17 Chief Complaint (Nursing): Chest Pain History Per: Patient History/Exam Limitations: no limitations Onset/Duration Of Symptoms: Hrs Current Symptoms Are (Timing): Still Present Recent travel outside of the [place]: No Past Medical History Reviewed: Historical Data, Nursing Documentation, Vital Signs Vital Signs: Last Vital Signs Temp 97.7 F 06/25/18 08:11 Pulse 109 H 06/25/18 08:11 Resp 18 06/25/18 08:11 BP 107/70 06/25/18 08:11 Pulse Ox 98 06/25/18 08:11 - Medical History PMH: Atrial Fibrillation, CAD, CVA, Diabetes, Gall Bladder Disease (cholecyste ctomy), HTN, Hypercholesterolemia Denies: Chronic Kidney Disease Surgical History: CABG (5 years ago), Cholecystectomy, Coronary Stent, Pacemaker Family History: States: Unknown Family Hx, Hypertension - Social History Hx Tobacco Use: No Hx Alcohol Use: No Hx Substance Use: No - Immunization History Hx Tetanus Toxoid Vaccination: No Hx Influenza Vaccination: No Hx Pneumococcal Vaccination: No Review Of Systems Constitutional: Negative for: Fever, Chills Cardiovascular: Positive for: Chest Pain (left-sided. ), Palpitations Gastrointestinal: Positive for: Nausea, Vomiting, Abdominal Pain (epigastric. ) Neurological: Positive for: Headache Psych: Positive for: Anxiety Physical Exam - Physical Exam Appears: Well, No Acute Distress Skin: Normal Color, Warm, Dry Head: Atraumatic, Normacephalic Eye(s): bilateral: Normal Inspection Oral Mucosa: Moist Neck: Normal ROM, Supple Chest: Symmetrical Cardiovascular: Rhythm Regular, No Murmur Respiratory: Normal Breath Sounds, No Rales, No Rhonchi, No Wheezing Gastrointestinal/Abdominal: Normal Exam, Soft, No Tenderness Extremity: Bilateral: Atraumatic, Normal Color And Temperature, Normal ROM Neurological/Psych: Oriented x3, Normal Speech ED Course And Treatment - Laboratory Results Result Diagrams: 06/25/18 08:42 12/30/18 08:42 ECG: Interpreted By Me, Viewed By Me ECG Rhythm: Sinus Rhythm ECG Interpretation: No Acute Changes Rate From EC O2 Sat by Pulse Oximetry: 98 (RA) Pulse Ox Interpretation: Normal Medical Decision Making Medical Decision Making: Plan: -EKG -Blood sent. -CXT -Urinalysis -Pepcid -Reglan -Toradol 1020 On re-eval the patient was sleeping comfortably on the stretcher. She reported feeling better and ready for discharge. Discussed with results and she felt comfortable going home. Advise to avoid using alcohol or drugs and to follow up with her doctor Disposition Counseled Patient/Family Regarding: Diagnosis, Need For Followup - Disposition Disposition: HOME/ ROUTINE Disposition Time: 10:27 Condition: STABLE Additional Instructions: Luda beber alcohol o cualquier droga. seguimiento con osuna mdico Si tiene dolor en el pecho, tome aspirina e inmediatamente regrese al hospital. Instructions: Ulcer and Gastritis Diet Print Language: ZIMBABWEAN - POA Present On Arrival: None - Clinical Impression Clinical Impression: Alcoholic gastritis - PA / PROFESSOR OF GEOGRAPHY / Resident Statement MD/DO has reviewed & agrees with the documentation as recorded. - Scribe Statement The provider has reviewed the documentation as recorded by the Scribe (Camille Sosa) All medical record entries made by the Scribe were at my direction and personally dictated by me. I have reviewed the chart and agree that the record accurately reflects my personal performance of the history, physical exam, medical decision making, and the department course for this patient. I have also personally directed, reviewed, and agree with the discharge instructions and disposition.
[2018-06-25 08:49] LABS: BASO % 0.5 % (0.0-2.0); EOS # 0.1 K/uL (0.0-0.7); EOS % 2.3 % (0.0-4.0); LYMPH % 17.4 % (20.0-40.0); MEAN CORPUSCULAR HEMOGLOBIN 28.8 pg (27.0-31.0); MEAN CORPUSCULAR HGB CONC 32.8 g/dL (33.0-37.0); MEAN PLATELET VOLUME 7.9 fL (7.2-11.7); MONO # 0.3 K/uL (0.0-0.8); MONO % 5.4 % (0.0-10.0); NEUT # 4.4 K/uL (1.8-7.0); NEUT % 74.4 % (50.0-75.0); RBC 4.54 Mil/uL (3.80-5.20); RED CELL DISTRIBUTION WIDTH 15.4 % (11.5-14.5); WHITE BLOOD COUNT 5.9 K/uL (4.8-10.8)
[2018-06-25 08:50] LABS: HEMOGLOBIN 13.1 g/dL (11.0-16.0); MEAN CELL VOLUME 87.8 fL (81.0-99.0)
[2018-06-25 08:56] LABS: INR 1.8
[2018-06-25 09:04] LABS: ALB/GLOB RATIO 1.3 (1.0-2.1); ALBUMIN 4.3 g/dL (3.5-5.0); ALT/SGPT 49 U/L (9-52); AST/SGOT 65 U/L (14-36); BLOOD UREA NITROGEN 22 mg/dL (7-17); CALCIUM 8.6 mg/dl (8.6-10.4); GFR NON-AFRICAN AMERICAN > 60
[2018-06-25] MEDS ORDERED: Sodium Chloride 0.9% 1,000 ML ONE (09:08)
[2018-06-25] MEDS: Sodium Chloride 0.9% 1,000 ML IV ONE (09:10)
[2018-06-25 09:32] LABS: SQUAMOUS EPITHIAL < 1 /hpf (0-5); URINE BILIRUBIN NEGATIVE (NEGATIVE); URINE BLOOD 1+ (NEGATIVE); URINE CLARITY Clear (Clear); URINE COLOR Yellow (YELLOW); URINE GLUCOSE (UA) NORMAL (Normal); URINE LEUKOCYTE ESTERASE NEG Leu/uL (Negative); URINE PROTEIN NEGATIVE (NEGATIVE); URINE UROBILINOGEN NORMAL mg/dL (0.2-1.0)
[2018-06-25 09:46] LABS: BARBITURATES, UR NEGATIVE (NEGATIVE); BENZODIAZEPINES, UR NEGATIVE (NEGATIVE); OPIATES, UR NEGATIVE (NEGATIVE); PHENCYCLIDINE, UR NEGATIVE (NEGATIVE)
[2018-06-25 10:26] VITALS: BP 115/76; PULSE 82; TEMP 98.1
[2018-06-25 10:29] VITALS: O2SAT 98
--- NOTE | 2018-06-25 10:41 | RAD ---
Date of service: 06/25/2018 HISTORY: Chest pain COMPARISON: 09/18/2017. TECHNIQUE: Chest PA and lateral FINDINGS: LINES AND TUBES: None. LUNG AND PLEURA: The lungs are well inflated. There is mild pulmonary venous congestion no pleural effusion or pneumothorax. HEART AND MEDIASTINUM: There is moderate cardiomegaly. Status post CABG and prosthetic valve replacement. No aortic atherosclerotic calcification present. The hilar and mediastinal contours are within normal limits. SKELETAL STRUCTURES: The bony structures are within normal limits for the patient's age. VISUALIZED UPPER ABDOMEN: Normal. OTHER FINDINGS: Surgical clips in the right upper quadrant are related to prior cholecystectomy. IMPRESSION: Moderate cardiomegaly and mild pulmonary venous congestion. No active pulmonary disease.
--- NOTE | 2018-06-26 11:57 | CARD ---
APPROVED REPORT Date of service: 06/25/2018 EKG Measurement Heart [id number] <Conclusion> Normal sinus rhythm Possible Left atrial enlargement Septal infarct, age undetermined Abnormal ECG
== END 2018-06-25 10:45 | disposition home or self-care (01) ==
LOC: C.ER 08:02
DX: K29.20 Alcoholic gastritis without bleeding (principal); I25.10 Atherosclerotic heart disease of native coronary artery without angina pectoris; I10 Essential (primary) hypertension; E78.00 Pure hypercholesterolemia, unspecified; E11.9 Type 2 diabetes mellitus without complications
CPT/HCPCS: 71046; 80053; 81001; 85025; 85610; 85730; 93005; 96361; 96374; 96375; 99285; G0480; J1885; J2765; J7030

== ENCOUNTER 2018-08-13 06:30 | Emergency (ER) | payer BC | END 2018-08-13 10:14 | disposition home or self-care (01) | LOC: C.ER 06:30 ==

== ENCOUNTER 2018-09-22 06:39 | Emergency (ER) | payer SELFPAY ==
[2018-09-22 06:39] VITALS: PULSE 98
[2018-09-22 07:00] VITALS: BP 135/83; PULSE 72; RESP 18; TEMP 97.5; O2SAT 99
--- NOTE | 2018-09-22 08:15 | C.PDOC ---
History Of Present Illness 58 y/o female presents to the ED complaining of persistent ankle pain s/p trip and fall. Patient admits she fell last week injuring the left ankle. She denies any head trauma or LOC. Pain worsens with walking and movement. Patient notes she did not seek medical attention immediately but presents today due to continued pain. No sensory changes. No open wounds. Time Seen by Provider: 09/22/18 07:16 Chief Complaint (Nursing): Lower Extremity Problem/Injury History Per: Patient History/Exam Limitations: no limitations Onset/Duration Of Symptoms: Days Current Symptoms Are (Timing): Still Present - Ankle/Foot Description Of Injury: Fell Past Medical History Reviewed: Historical Data, Nursing Documentation, Vital Signs Vital Signs: Last Vital Signs Temp 97.5 F L 09/22/18 06:53 Pulse 72 09/22/18 06:53 Resp 18 09/22/18 06:53 BP 135/83 09/22/18 06:53 Pulse Ox 99 09/22/18 06:53 - Medical History PMH: Atrial Fibrillation, CAD, CVA, Diabetes, Gall Bladder Disease (cholecystectomy), HTN, Hypercholesterolemia Denies: Chronic Kidney Disease Surgical History: CABG (5 years ago), Cholecystectomy, Coronary Stent, Pacemaker Family History: States: Hypertension - Social History Hx Tobacco Use: No Hx Alcohol Use: No Hx Substance Use: No - Immunization History Hx Tetanus Toxoid Vaccination: No Hx Influenza Vaccination: No Hx Pneumococcal Vaccination: No Review Of Systems Constitutional: Negative for: Fever, Chills Cardiovascular: Negative for: Chest Pain Respiratory: Negative for: Shortness of Breath Gastrointestinal: Negative for: Nausea, Vomiting Musculoskeletal: Positive for: Foot Pain (left ankle) Skin: Negative for: Rash, Lesions Neurological: Negative for: Weakness, Numbness Physical Exam - Physical Exam Appears: Non-toxic, No Acute Distress Skin: Warm, Dry, No Rash Head: Atraumatic, Normacephalic Eye(s): bilateral: Normal Inspection, PERRL, EOMI Oral Mucosa: Moist Neck: Normal ROM Chest: Symmetrical Respiratory: No Accessory Muscle Use, Other (Speaking in full sentences) Extremity: Normal ROM (with full ROM of ankle and digits), Tenderness (to the medial and lateral malleolus of left ankle), Capillary Refill (less than 2 sec), No Deformity (No obvious or palpable deformity), No Swelling (or ecchymosis) Pulses: Left Dorsalis Pedis: Normal, Right Dorsalis Pedis: Normal Neurological/Psych: Oriented x3, Normal Motor, Normal Sensation ED Course And Treatment O2 Sat by Pulse Oximetry: 99 (on RA) Pulse Ox Interpretation: Normal - Other Rad left ankle x-ray X-Ray: Read By Radiologist Interpretation: Accession No. : [id number]. Patient Name / ID : IRVING EDMONDS / [id number]. Exam Date : 09/22/2018 07:38:09 ( Approved ). Study Comment : Sex / Age : F / 58Y. Creator : shashank lutz. Dictator : Michelle Pham MD. Smart Energy Specialist : Military Communications Specialist : Michelle Pham MD. Approver2 : Report Date : 09/22/2018 07:41:40. My Comment : . PROCEDURE: Left Ankle Radiographs. HISTORY: injury/pain. COMPARISON: None. FINDINGS: BONES: No acute displaced fracture. JOINTS: No dislocation. Ankle mortise maintained. Talar dome intact. SOFT TISSUES: Unremarkable. No evidence of radiopaque foreign body. OTHER FINDINGS: None. IMPRESSION: No acute displaced fracture, dislocation, or significant joint effusion identified. If symptoms persist or if there is clinical concern, x-ray follow-up in 7-10 days should be considered. Medical Decision Making Medical Decision Making: Impression: Ankle injury Plan: * Left ankle x-ray X-ray is negative. Patient counseled regarding results and course of discharge. Disposition Counseled Patient/Family Regarding: Studies Performed, Diagnosis, Need For Followup - Disposition Referrals: Kevin Kern MD [Primary Care Provider] - [facility] [Outside] [facility] [Outside] Disposition: HOME/ ROUTINE Disposition Time: 08:32 Condition: GOOD Additional Instructions: GREY COY, thank you for letting us take care of you today. Your provider was Katy Mix MD and you were treated for ANKLE PAIN. The emergency medical care you received today was directed at your acute symptoms. If you were prescribed any medication, please fill it and take as directed. It may take several days for your symptoms to resolve. Return to the Emergency Department if your symptoms worsen, do not improve, or if you have any other problems. Please contact your doctor or call one of the physicians/clinics you have been referred to that are listed on the Patient Visit Information form that is included in your discharge packet. Bring any paperwork you were given at discharge with you along with any medications you are taking to your follow up visit. Our treatment cannot replace ongoing medical care by a primary care provider outside of the emergency department. Thank you for allowing the [facility] team to be part of your care today. Prescriptions: Ibuprofen [Motrin Tab] 800 mg PO TID PRN #30 tab PRN Reason: Pain, Moderate (4-7) Instructions: Ankle Sprain (DC), How to Use an Elastic Bandage Forms: Gen Discharge Inst Turkmen, Zytoprotec (Turkmen) Print Language: TOGOLESE - POA Present On Arrival: None - Clinical Impression Clinical Impression: Ankle injury - Scribe Statement The provider has reviewed the documentation as recorded by the Sherry Gonzalez Provider Attestation: All medical record entries made by the Jianibnicolas were at my direction and personally dictated by me. I have reviewed the chart and agree that the record accurately reflects my personal performance of the history, physical exam, medical decision making, and the department course for this patient. I have also personally directed, reviewed, and agree with the discharge instructions and disposition.
--- NOTE | 2018-09-22 08:17 | RAD ---
PROCEDURE: Left Ankle Radiographs. HISTORY: injury/pain COMPARISON: None FINDINGS: BONES: No acute displaced fracture. JOINTS: No dislocation. Ankle mortise maintained. Talar dome intact SOFT TISSUES: Unremarkable. No evidence of radiopaque foreign body. OTHER FINDINGS: None. IMPRESSION: No acute displaced fracture, dislocation, or significant joint effusion identified. If symptoms persist or if there is clinical concern, x-ray follow-up in 7-10 days should be considered.
== END 2018-09-22 08:50 | disposition home or self-care (01) ==
LOC: C.ER 06:39 → SUPCPDRO 06:39 → C.ER 08:50
DX: S99.912A Unspecified injury of left ankle, initial encounter (principal); W01.0XXA Fall on same level from slipping, tripping and stumbling without subsequent striking against object, initial encounter